=== PATIENT | male | born 1965 | race Caucasian/White ===

== ENCOUNTER 2018-02-16 08:02 | Outpatient (CLI) | payer OTHER ==
--- NOTE | 2018-02-16 12:13 | MRI ---
MRI OF THE CERVICAL SPINE WITHOUT CONTRAST: History: Neck pain for several years. Bilateral shoulder pain and numbness. Technique: Multiplanar, multisequence MR images were obtained of the cervical spine without contrast. FINDINGS: The vertebral bodies demonstrate normal height and alignment without fracture or subluxation. There i s loss of intervertebral disc space height at C6 and C7. Endplate degenerative changes and edema are seen in the C6 and C7 vertebral bodies. The visualized cord demonstrates normal signal throughout. The craniocervical junction is unremarkabl e. The prevertebral and paraspinal soft tissues are unremarkable. C2-3: Unremarkable. C3-4: There is a small amount of high T2 signal in the left subarticular region of a small disc bulge , likely secondary to a annular tear. No significant neural foraminal or central canal stenosis. No p osterior facet arthrosis. C4-5: No significant bulge or protrusion. Moderate left and mild right posterior facet arthrosis. No central canal stenosis. Moderate left neural foraminal stenosis. Mild right neural foraminal stenosis . C5-6: No significant bulge or protrusion. Mild bilateral posterior facet arthrosis. No central canal stenosis. Mild bilateral neural foraminal narrowing stenosis. C6-7: A moderate disc osteophyte complex is seen. Mild bilateral posterior facet arthrosis. Mild cent ral canal stenosis. Mild to moderate bilateral neural foraminal stenosis. C7-T1: Unremarkable. IMPRESSION: Degenerative changes of the cervical spine as above. POS: [facility]
== END 2018-02-16 08:03 | disposition home or self-care (01) ==
LOC: TBSIIMAG 08:02
PROVIDERS: ATTEND Anesthesiology
DX: M47.22 Other spondylosis with radiculopathy, cervical region (principal)
CPT/HCPCS: 72141

== ENCOUNTER 2018-09-21 10:27 | Outpatient (CLI) | payer OTHER ==
--- NOTE | 2018-09-21 15:40 | RAD ---
LEFT HAND THREE VIEWS: HISTORY: Psoriatic arthritis. Joint pain. COMPARISON: None. FINDINGS: Mild narrowing of the second and third metatarsophalangeal joints. No erosions or periostitis. Mild degenerative disease of the thumb metacarpophalangeal joint. IMPRESSION: Mild degenerative change. No evidence of psoriatic arthritis. POS: [facility]
--- NOTE | 2018-09-21 16:00 | RAD ---
RIGHT HAND THREE VIEWS: HISTORY: Pain. Evaluate for psoriatic arthritis. COMPARISON: None. FINDINGS: There is evidence of old injury to the middle finger proximal phalangeal joint with ossification of t he dorsal capsule and medial subluxation, as well as some cortical cyst formation. There is also mod erate degenerative disease of the thumb carpometacarpal joint. No periostitis or erosions. IMPRESSION: No evidence of rheumatoid arthritis or psoriatic arthritis. POS: [facility]
== END 2018-09-21 10:28 | disposition home or self-care (01) ==
LOC: BICRAD 10:27
DX: M19.042 Primary osteoarthritis, left hand (principal); M19.041 Primary osteoarthritis, right hand
CPT/HCPCS: 36415; 80053; 81003; 83520; 85025; 85652; 86038; 86140; 86200; 86225

== ENCOUNTER 2018-10-05 09:32 | Emergency (ER) | payer OTHER ==
[2018-10-05 10:04] LABS: #Eosinphils 0.1 thou/uL (0.0-0.7); #Lymphocytes 1.1 thou/uL (1.20-3.40); #Monocytes 0.5 thou/uL (0.11-0.59); #Neutrophils 3.4 thou/uL (1.40-6.50); %Basophils 0.4 % (0.0-1.0); %Eosinophils 1.6 % (0.0-10.0); %Lymphocytes 21.7 % (21.0-51.0); %Monocytes 9.7 % (0.0-10.0); %Neutrophils 66.7 % (42.0-75.0); Hemoglobin 15.9 g/dL (14.0-18.0); Mean Corpuscular HGB CONC 35.3 g/dL (32.0-36.0); Mean Corpuscular Hemoglobin 31.7 pg (27.0-31.0); Mean Corpuscular Volume 89.9 fL (78.0-98.0); Mean Platelet Volume 7.2 fL (7.4-10.4); Platelet Count 167 thou/uL (130-400); RBC Distribution Width 11.8 % (11.5-14.5); Red Blood Cell (RBC) Count 5.01 mill/uL (4.70-6.10); White Blood Cell (WBC) Count 5.1 thou/uL (4.8-10.8)
[2018-10-05 10:30] LABS: ALT (SGPT) 42 U/L (8-55); AST (SGOT) 31 U/L (5-34); Albumin 4.3 g/dL (3.5-5.0); Alkaline Phosphatase 130 U/L (40-150); Anion Gap 13 mmol/L (10-20); BUN (Urea Nitrogen) 16 mg/dL (8.4-25.7); Bilirubin, Total 0.4 mg/dL (0.2-1.2); Calc. Creatinine Clearance 0 mL/min (70-130); Calcium 9.4 mg/dL (7.8-10.44); Carbon Dioxide 22 mmol/L (22-29); Chloride 108 mmol/L (98-107); Estimated GFR-MDRD 87; Globulin 2.6 g/dL (2.4-3.5); Glucose 79 mg/dL (70-105); Potassium 3.9 mmol/L (3.5-5.1); Protein, Total 6.9 g/dL (6.0-8.3); Sodium 139 mmol/L (136-145)
--- NOTE | 2018-10-05 10:49 | RAD ---
PORTABLE CHEST 1 VIEW: Date: 10/05/18 Time: 1012 hours HISTORY: Dyspnea. FINDINGS/IMPRESSION: The heart size is normal. No focal areas of consolidation, pneumothorax, or pleural effusions are see n. IMPRESSION: No acute process. POS: [facility]
[2018-10-05] MEDS ORDERED: Nitroglycerin 0.4 MG TAB (25 Tab Bottle) ONE (11:07)
[2018-10-05] MEDS ORDERED: Lorazepam 2 MG/ML VIAL ONE (11:38)
--- NOTE | 2018-10-05 12:28 | CT ---
CT PULMONARY ANGIOGRAM WITH IV CONTRAST AND 3D POSTPROCESSING: Date: 10/05/18 HISTORY: Shortness of breath, palpitations. FINDINGS: No filling defects are seen in the pulmonary arterial vasculature to assess pulmonary embolism. The thoracic aorta is well opacified without aneurysm or dissection. No pleural or pericardial effusions are seen. No pneumothoraces or focal areas of consolidation or lung nodules/masses are identified. Mi nimal ground-glass opacities seen in the superior segment of the right lower lobe. There are degenera tive changes in the spine. IMPRESSION: No CT evidence of pulmonary embolism. POS: [facility]
== END 2018-10-05 13:02 | disposition home or self-care (01) ==
LOC: ERS 09:32
DX: R06.00 Dyspnea, unspecified (principal); Z79.899 Other long term (current) drug therapy
CPT/HCPCS: 71045; 71275; 80053; 83605; 83880; 84484; 85025; 85379; 93005; 96361; 96374; J2060

== ENCOUNTER 2019-07-30 14:04 | Outpatient (CLI) | payer OTHER ==
--- NOTE | 2019-07-30 14:34 | RAD ---
3 views of the right knee: 07/30/2019 COMPARISON: None available HISTORY: Knot behind the knee FINDINGS: Mild medial compartment narrowing. No fracture or dislocation. No knee joint effusion. If t here is a palpable abnormality, MRI advised. IMPRESSION: No acute osseous abnormality.
== END 2019-07-30 14:05 | disposition home or self-care (01) ==
LOC: SCSRAD 14:04
PROVIDERS: ATTEND Family Medicine
DX: M25.561 Pain in right knee (principal)

== ENCOUNTER 2019-12-03 13:11 | Outpatient (CLI) | payer OTHER ==
--- NOTE | 2019-12-03 14:33 | MRI ---
MRI of thecervical spine: 12/03/2019 COMPARISON:02/16/2018 HISTORY:Neck pain with cervical radiculopathy TECHNIQUE: Multiplanar multisequence MR imaging of thecervical spine without contrast Findings:Sagittal STIR imaging demonstrates no focal area of osseous marrow edema. Mild edematous degenerative endplate changes at C6-7, similar when compared to the prior exam. C2-3: No significant central canal or neural foraminal stenosis. C3-4: No significant central canal or neural foraminal stenosis C4-5: No significant central canal or neural foraminal stenosis C5-6: Minimal disc bulge with no central canal stenosis. Mild left facet hypertrophy. No significant neural foraminal stenosis on either side. C6-7: There is disc desiccation with mild disc bulge partially effacing the ventral thecal sac. No as sociated central canal stenosis. Mild bilateral neural foraminal stenosis, right greater than left. Mild bilateral facet and uncovertebral osteophyte formation. C7-T1: No significant central canal or neural foraminal stenosis. There is no focal area of abnormal signal intensity identified within the cervical cord. IMPRESSION:Grossly unchanged cervical spine degenerative change as detailed above.
--- NOTE | 2019-12-03 14:58 | MRI ---
MRI LUMBAR SPINE NONCONTRAST: HISTORY: Low back pain with bilateral leg pain. COMPARISON: 01/30/2011 FINDINGS: Stable straightening of lumbar lordosis. Interval development of type I Modic changes at L2-L3 and L5 -S1. Preservation of lumbar spine vertebral body height. No fracture. Appropriate signal intensity of visualized paraspinal muscles. Redemonstration of T2 hyperintensities in the left and right renal cortex, compatible with cortical cysts. Conus medullaris terminates at the upper aspect of T12. T12-L1:Adequate disc hydration. No posterior disc abnormality. No significant central canal stenosis or significant neural foraminal narrowing L1-L2:Adequate disc hydration. Small left paracentral disc herniation. Minimal stenosis of the thecal sac. Disc material does encroach upon the left subarticular zone. Mass effect and displacement of the traversing left L2 nerve root, partial obscuration. Bilaterally, neural foramina are patent. L2-L3:Desiccation with severe loss of disc space height. Broad-based disc bulge abuts the thecal sac. No significant stenosis of the thecal sac. Disc material encroaches upon the right subareolar zone and makes contact with the traversing right L3 nerve root. Mild traversing L3 nerve root displacement . Minimal right foraminal narrowing due to disc material. Patent left neural foramen. L3-L4:Desiccation with mild loss of disc space height. Broad-based disc bulge abuts the thecal sac. M ild stenosis of the thecal sac. Disc material encroaches upon the left subarticular zone. There is contact upon the traversing left L2 nerve root without significant mass effect or obscuration. Mild l igamentum flavum thickening and facet hypertrophy. Mild bilateral neural foraminal narrowing. L4-L5:Minimal desiccation without significant loss of disc space height. No significant central canal stenosis. Trace amount of fluid in both facet joints. Bilaterally, there is mild foraminal narrowing due to disc material. L5-S1:Disc desiccation with severe loss of disc space height. Disc space height loss has progressed since the previous examination. Broad-based disc bulge, minimally abuts the epidural fat. There is no significant central canal stenosis. There is fluid in both facet joints. Moderate bilateral forami nal narrowing which has progressed since the previous examination. IMPRESSION: Multilevel degenerative changes of the lumbar spine as detailed above. There is progression of loss o f disc space height and foraminal stenosis. There is also interval development of type I Modic changes at L2-L3 and L5-S1. Transcribed Date/Time: 12/03/2019 3:22 PM
== END 2019-12-03 13:12 | disposition home or self-care (01) ==
LOC: TBSIIMAG 13:11
PROVIDERS: ATTEND Anesthesiology
DX: M47.26 Other spondylosis with radiculopathy, lumbar region (principal); M47.22 Other spondylosis with radiculopathy, cervical region; M51.16 Intervertebral disc disorders with radiculopathy, lumbar region; M48.061 Spinal stenosis, lumbar region without neurogenic claudication
CPT/HCPCS: 72141; 72148

== ENCOUNTER 2022-06-16 12:08 | Emergency (ER) | payer BC ==
[2022-06-16] MEDS ORDERED: Ondansetron PF 4 MG/2 ML Vial ONE (12:31)
[2022-06-16] MEDS ORDERED: Ketorolac Tromethamine 30 MG/ML VIAL ONE (12:31)
[2022-06-16 12:49] LABS: #Eosinphils 0.1 thou/uL (0.0-0.7); #Monocytes 0.4 thou/uL (0.11-0.59); #Neutrophils 6.9 thou/uL (1.40-6.50); %Basophils 0.1 % (0.0-1.0); %Lymphocytes 11.4 % (21.0-51.0); %Monocytes 5.1 % (0.0-10.0); %Neutrophils 82.5 % (42.0-75.0); Hemoglobin 14.9 g/dL (14.0-18.0); Mean Corpuscular HGB CONC 35.3 g/dL (32.0-36.0); Mean Corpuscular Volume 90.7 fL (78.0-98.0); Platelet Count 191 thou/uL (130-400); RBC Distribution Width 12.4 % (11.5-14.5); Red Blood Cell (RBC) Count 4.64 mill/uL (4.70-6.10); White Blood Cell (WBC) Count 8.4 thou/uL (4.8-10.8)
[2022-06-16] MEDS ORDERED: Morphine 4 MG/ML VIAL ONE ×2 (13:11→14:34)
[2022-06-16 13:12] LABS: Anion Gap 19 mmol/L (10-20); BUN (Urea Nitrogen) 19 mg/dL (8.4-25.7); Calc. Creatinine Clearance 0 mL/min (70-130); Calcium 9.6 mg/dL (7.8-10.44); Carbon Dioxide 20 mmol/L (22-29); Chloride 108 mmol/L (98-107); Estimated GFR 65; Glucose 152 mg/dL (70-105); Potassium 4.7 mmol/L (3.5-5.1); Sodium 142 mmol/L (136-145)
[2022-06-16 14:34] LABS: Bacteria/HPF None Seen HPF (None Seen); Bilirubin Negative (Negative); Blood, Urine 2+ (Negative); Clarity Turbid (Clear); Glucose, Urine (Dipstick) 50 mg/dL (Negative); Ketone, Urine Negative (Negative); Leukocyte Negative Leu/uL (Negative); Nitrite Negative (Negative); Protein, Urine (Dipstick) Negative (Neg-Trace); RBC/HPF 0-3 HPF (0-3); Specific Gravity, Urine 1.018 (1.002-1.036); Squamous Epithelial None Seen HPF (0-3); Urobilinogen Normal mg/dL (Less than 2); WBC/HPF 0-3 HPF (0-3)
== END 2022-06-16 15:30 | disposition home or self-care (01) ==
LOC: ERS 12:08
DX: N13.2 Hydronephrosis with renal and ureteral calculous obstruction (principal)
CPT/HCPCS: 74176; 80048; 81003; 81015; 85025; 96361; 96374; 96375; 96376; J1885; J2270; J2405

== ENCOUNTER 2022-08-08 07:06 | Outpatient (CLI) | payer BC ==
[2022-08-08] MEDS ORDERED: Iopamidol-370 76% 500 ML 1 ML ONE (13:57)
== END 2022-08-08 07:07 | disposition home or self-care (01) ==
LOC: BICCT 07:06
PROVIDERS: ATTEND Physician Assistant Medical
DX: K59.00 Constipation, unspecified (principal); R63.4 Abnormal weight loss; R10.2 Pelvic and perineal pain; R39.11 Hesitancy of micturition
CPT/HCPCS: 74177; Q9967

== ENCOUNTER 2022-12-03 09:01 | Emergency (ER) | payer BC ==
[2022-12-03] MEDS ORDERED: Boostrix 0.5 ML (Tdap) VIAL (>/=7 yrs of age) ONE (10:20)
[2022-12-03] MEDS ORDERED: Lidocaine 1% MPF 2 ML VIAL ONE (10:20)
[2022-12-03] MEDS ORDERED: Lidocaine 1% w/Epinephrine 1:100K 20 ML VIAL ONE (10:25)
[2022-12-03] MEDS ORDERED: Bacitracin 1 PK ONE (11:01)
== END 2022-12-03 11:34 | disposition home or self-care (01) ==
LOC: ERS 09:01
DX: S51.812A Laceration without foreign body of left forearm, initial encounter (principal); S61.412A Laceration without foreign body of left hand, initial encounter; W29.0XXA Contact with powered kitchen appliance, initial encounter; Z23 Encounter for immunization
CPT/HCPCS: 12002; 90471; 90715

== ENCOUNTER 2023-05-14 13:13 | Outpatient (CLI) | payer BC | END 2023-05-14 13:14 | disposition home or self-care (01) | LOC: MRI 13:13 | PROVIDERS: ATTEND Anesthesiology | DX: M47.26 Other spondylosis with radiculopathy, lumbar region (principal); M51.16 Intervertebral disc disorders with radiculopathy, lumbar region; M47.16 Other spondylosis with myelopathy, lumbar region; M51.06 Intervertebral disc disorders with myelopathy, lumbar region; M47.817 Spondylosis without myelopathy or radiculopathy, lumbosacral region; M47.815 Spondylosis without myelopathy or radiculopathy, thoracolumbar region; M48.07 Spinal stenosis, lumbosacral region; M25.78 Osteophyte, vertebrae; M51.37 Other intervertebral disc degeneration, lumbosacral region | CPT/HCPCS: 72148 ==

== ENCOUNTER 2023-08-22 18:42 | Emergency (ER) | payer BC ==
[2023-08-22 19:55] LABS: #Eosinphils 0.1 thou/uL (0.0-0.7); #Monocytes 0.4 thou/uL (0.11-0.59); #Neutrophils 2.9 thou/uL (1.40-6.50); %Basophils 0.4 % (0.0-1.0); %Lymphocytes 29.4 % (21.0-51.0); %Monocytes 8.6 % (0.0-10.0); %Neutrophils 59.2 % (42.0-75.0); Hemoglobin 13.3 g/dL (14.0-18.0); Mean Corpuscular Hemoglobin 31.7 pg (27.0-31.0); Mean Corpuscular Volume 90.7 fl (78.0-98.0); Mean Platelet Volume 10.2 fL (7.4-10.4); Platelet Count 165 10x3/uL (130-400); RBC Distribution Width 12.5 % (11.5-14.5); Red Blood Cell (RBC) Count 4.19 mill/uL (4.70-6.10); White Blood Cell (WBC) Count 4.9 10x3/uL (4.8-10.8)
[2023-08-22 19:57] LABS: Bilirubin Negative (Negative); Blood, Urine Negative (Negative); Clarity Turbid (Clear); Glucose, Urine (Dipstick) Normal (Negative); Ketone, Urine Negative (Negative); Leukocyte Negative Leu/uL (Negative); Nitrite Negative (Negative); Protein, Urine (Dipstick) Negative (Neg-Trace); Specific Gravity, Urine 1.014 (1.002-1.036); Urobilinogen Normal mg/dL (Less than 2); pH, Urine 7.5 (5.0-9.0)
[2023-08-22 20:05] LABS: Bacteria/HPF None Seen HPF (None Seen); CAUTI Indications for Culture Pelvic or flank pain; RBC/HPF None Seen HPF (0-3); Squamous Epithelial 0-3 HPF (0-3); WBC/HPF None Seen HPF (0-3)
[2023-08-22 20:06] LABS: Urine Culture Reflex No No
[2023-08-22 20:34] LABS: ALT (SGPT) 18 U/L (8-55); AST (SGOT) 19 U/L (5-34); Albumin 4.4 g/dL (3.5-5.0); Alkaline Phosphatase 89 U/L (40-110); Anion Gap 12 mmol/L (10-20); BUN (Urea Nitrogen) 12 mg/dL (8.4-25.7); Bilirubin, Total 0.4 mg/dL (0.2-1.2); Calc. Creatinine Clearance 0 mL/min (70-130); Calcium 9.4 mg/dL (7.8-10.44); Carbon Dioxide 26 mmol/L (22-29); Chloride 108 mmol/L (98-107); Estimated GFR 61; Glucose 91 mg/dL (70-105); Protein, Total 6.4 g/dL (6.0-8.3); Sodium 142 mmol/L (136-145)
== END 2023-08-22 22:10 | disposition home or self-care (01) ==
LOC: ERS 18:42
DX: N44.2 Benign cyst of testis (principal); I86.1 Scrotal varices; I10 Essential (primary) hypertension; Z79.899 Other long term (current) drug therapy
CPT/HCPCS: 36415; 76870; 80053; 81001; 85025; 93976